=== PATIENT | male | born 1985 | race Caucasian/White ===

== ENCOUNTER 2024-01-27 13:44 | Outpatient (CLI) | payer OTHER ==
--- NOTE | 2024-01-27 21:43 | MRI Report ---
PROCEDURE: Cervical Spine WO INDICATIONS: CERVICALGIA TECHNIQUE: Noncontrast sagittal T1 spin echo and T2 fast spin echo, sagittal STIR, foraminal oblique sagittal T2 fast spin echo, and axial gradient echo or T2 fast spin echo through the cervical spine. COMPARISON: None. FINDINGS: Image quality: Excellent. Alignment and Curvature: There is normal bony alignment. Bone Marrow: Marrow demonstrates normal overall signal. Spinal Cord: Visualized spinal cord has normal size and signal. No cerebellar tonsillar herniation. Paraspinous Soft Tissues: No paravertebral masses. Prevertebral soft tissues are normal in thicknes s. C2-C3: No significant spinal canal stenosis or neuroforaminal narrowing. C3-C4: Mild posterior disc osteophyte complex and uncovertebral joint and facet hypertrophy. Mild l eft neural foraminal narrowing without significant right neural foraminal narrowing or spinal canal s tenosis. C4-C5: Mild posterior disc osteophyte complex and uncovertebral joint and facet hypertrophy. Mild bi lateral neural foraminal narrowing and mild narrowing of the spinal canal. C5-C6: No significant spinal canal stenosis or neuroforaminal narrowing. C6-C7: Mild posterior disc osteophyte complex as well as left greater than right uncovertebral joint and facet hypertrophy. Findings result in moderate left and mild to moderate right neural foraminal narrowing and narrowing of the spinal canal. C7-T1: Mild bilateral uncovertebral joint and facet hypertrophy, which result in mild bilateral neur al foraminal narrowing without significant spinal canal stenosis. IMPRESSION: 1.Multilevel degenerative disc disease, uncovertebral joint hypertrophy, and facet hypertrophy as jonny cribed in detail in the body of the report. 2.Findings are worst at the C6-7 level where there is moderate left and mild to moderate right neural foraminal narrowing. 3.No high-grade spinal canal stenosis or high-grade neuroforaminal narrowing. Reviewed by: Naveen Pimentel MD on 01/27/2024 9:42 PM PDT Approved by: Naveen Pimentel MD on 01/27/2024 9:42 PM PDT Station ID: [id number]
== END 2024-01-27 13:45 | disposition home or self-care (01) ==
LOC: DI 13:44
PROVIDERS: ATTEND Preventive Medicine Aerospace Medicine
DX: M47.812 Spondylosis without myelopathy or radiculopathy, cervical region (principal); M50.30 Other cervical disc degeneration, unspecified cervical region; M48.02 Spinal stenosis, cervical region